=== PATIENT | female | born 1985 | race Caucasian/White ===

== ENCOUNTER → 2018-10-13 | Outpatient (REF) | payer OTHER ==
[2018-10-13 15:32] LABS: CHLAMYDIA DNA AMPLIFICATION NEGATIVE (NEGATIVE); GC DNA AMPLIFICATION NEGATIVE (NEGATIVE)
[2018-10-16 14:22] LABS: HPV HYBRID CAPTURE II Negative (Negative)
== END ==
LOC: M LAB REF 13:15
PROVIDERS: ATTEND Obstetrics & Gynecology
DX: Z11.3 Encounter for screening for infections with a predominantly sexual mode of transmission (principal); Z12.4 Encounter for screening for malignant neoplasm of cervix
CPT/HCPCS: 87491; 87591; 87624; G0123

== ENCOUNTER → 2019-05-04 | Outpatient (CLI) | payer OTHER ==
--- NOTE | 2019-05-05 02:54 | REP ---
Clinical: Trauma. Technique: AP, lateral, bilateral oblique views left wrist . Findings: The carpal bones, surrounding osseous structures, soft tissues, and joint spaces are normal. There is no evidence for acute fracture or dislocation. No subcutaneous emphysema or radiodense foreign body. Impression: Normal wrist series. No acute fracture or dislocation Electronically Signed by Daniel Hoffman MD 05/05/2019 02:46 A
== END ==
LOC: M WUC 10:12
PROVIDERS: ATTEND Physician Assistant
DX: S63.502A Unspecified sprain of left wrist, initial encounter (principal)

== ENCOUNTER → 2021-01-30 | Outpatient (REF) | payer OTHER ==
[2021-01-31 13:25] LABS: CHLAMYDIA DNA AMPLIFICATION NEGATIVE (NEGATIVE); GC DNA AMPLIFICATION NEGATIVE (NEGATIVE)
== END ==
LOC: M SFHCWAGY 10:06
PROVIDERS: ATTEND Obstetrics & Gynecology
DX: Z11.3 Encounter for screening for infections with a predominantly sexual mode of transmission (principal)

== ENCOUNTER → 2021-02-08 | Outpatient (REF) | payer OTHER | LOC: M SFHCWAGY 13:07 | PROVIDERS: ATTEND Obstetrics & Gynecology | DX: Z01.419 Encounter for gynecological examination (general) (routine) without abnormal findings (principal); Z12.4 Encounter for screening for malignant neoplasm of cervix ==

== ENCOUNTER → 2021-06-15 | Outpatient (CLI) | payer OTHER ==
--- NOTE | 2021-06-15 10:01 | REP ---
INDICATION: FOLLICULAR CYST OF LEFT OVARY. LMP, 8 years ago COMPARISON: Pelvic ultrasound, 05/02/2014. TECHNIQUE: Trans abdominal and transvaginal ultrasound evaluation of the pelvis was performed. FINDINGS: The anteverted uterus measures 8.4 x 4.3 x 4.1 cm. The endometrium measures 5 mm in thickness and contains an IUD in good position. The right ovary measures 3.1 x 1.9 x 1.8 cm. The resistive index is 0.57. The left ovary measures 3.5 x 3.3 x 2.0 cm. The resistive index is 0.57. There is a complex cyst with debris in the left ovary measuring 2.2 x 2.1 x 1.7 cm. There is no free fluid the pelvis. IMPRESSION: 1. IUD in good position in the uterine cavity. 2. Hemorrhagic cyst in the left ovary. <Electronically signed by Dudley Traylor > 06/15/21 [id number]
== END ==
LOC: M WHC 07:06
PROVIDERS: ATTEND Obstetrics & Gynecology
DX: N83.02 Follicular cyst of left ovary (principal)

== ENCOUNTER → 2021-09-28 | Outpatient (CLI) | payer OTHER ==
[~2021-09-28] MED LIST: HYOS125TA PO
== END ==
LOC: M LABSMTC 10:10
PROVIDERS: ATTEND Anesthesiology
DX: Z01.812 Encounter for preprocedural laboratory examination (principal); Z20.822 Contact with and (suspected) exposure to COVID-19

== ENCOUNTER 2021-10-03 12:02 | Day surgery (SDC) | payer OTHER ==
[~2021-10-03] VITALS: Ht 162.6 cm; Wt 70.2 kg
[~2021-10-03 12:02] MED LIST changes: +NS 1,000 ML IV ONE
[2021-10-03] MEDS ORDERED: propofoL 200 MG/20 ML VIAL As Ordered ONE (14:30)
[2021-10-03] MEDS ORDERED: LIDOCAINE 2% MDV 20ML VIAL As Ordered ONE (14:30)
[2021-10-03 15:10] VITALS: BP 131/79
== END 2021-10-03 15:13 | disposition home or self-care (01) ==
LOC: M OPP 12:02
PROVIDERS: ATTEND Internal Medicine Gastroenterology
DX: K64.0 First degree hemorrhoids (principal); R19.4 Change in bowel habit; R10.30 Lower abdominal pain, unspecified

== ENCOUNTER → 2023-09-23 | Outpatient (REF) | payer OTHER ==
[~2023-09-23] MED LIST changes: -NS 1,000 ML IV ONE
[2023-09-23 20:32] LABS: FOLATE > 24.00 NG/ML (>5.4)
[2023-09-23 20:36] LABS: VITAMIN B12 LEVEL 645 PG/ML (211-911)
== END ==
LOC: M LABWUC 17:34
PROVIDERS: ATTEND Registered Nurse
DX: F45.8 Other somatoform disorders (principal)

== ENCOUNTER 2023-10-01 08:35 | Day surgery (SDC) | payer OTHER ==
[~2023-10-01] VITALS: Ht 162.6 cm; Wt 70.3 kg
[2023-10-01] MEDS: NS 1,000 ML IV ONE (06:00)
[~2023-10-01 08:35] MED LIST changes: +MELO7.5T35 PO; +OMEP1CAP73 PO; +THERTAB52 PO; +mirena
[2023-10-01 09:55] VITALS: TEMP 98.5
[2023-10-01 10:26] VITALS: BP 110/74; O2SAT 99
== END 2023-10-01 10:28 | disposition home or self-care (01) ==
LOC: M OPP 08:35
PROVIDERS: ATTEND Internal Medicine Gastroenterology
DX: R12 Heartburn (principal); K44.9 Diaphragmatic hernia without obstruction or gangrene; K22.89 Other specified disease of esophagus; K31.89 Other diseases of stomach and duodenum; Z79.1 Long term (current) use of non-steroidal anti-inflammatories (NSAID); Z79.899 Other long term (current) drug therapy

== ENCOUNTER → 2023-12-31 | Outpatient (REF) | payer OTHER ==
[2023-12-31 19:24] LABS: FREE T4 1.09 NG/DL (0.89-1.76)
[2023-12-31 19:25] LABS: THYROID STIMULATING HORMONE 1.386 uIU/ML (0.55-4.78)
[2023-12-31 19:27] LABS: FREE T3 3.5 PG/ML (2.3-4.2)
== END ==
LOC: M LABWUC 17:51
PROVIDERS: ATTEND Otolaryngology
DX: K14.6 Glossodynia (principal)

== ENCOUNTER → 2024-10-21 | Outpatient (CLI) | payer OTHER ==
[2024-10-21 16:36] LABS: RHEUMATOID FACTOR QUANT < 3.5 IU/ML (<14)
[2024-10-21 16:37] LABS: VITAMIN B12 LEVEL 379 PG/ML (211-911)
[2024-10-25 21:02] LABS: ANA SCREEN, IFA NEGATIVE (NEGATIVE)
[2024-10-26 20:52] LABS: VITAMIN E(ALPHA TOCOPHEROL) 9.7 mg/L (5.7-19.9); VITAMIN E(GAMMA TOCOPHEROL) 1.2 mg/L (<=4.3)
[2024-10-28 17:32] LABS: VITAMIN B6,PYRIDOXAL PHOSPHATE 7.9 ng/mL (2.1-21.7)
== END ==
LOC: M WUC 08:37
PROVIDERS: ATTEND Psychiatry & Neurology Neurology
DX: R42 Dizziness and giddiness (principal)

== ENCOUNTER → 2025-07-19 | Outpatient (CLI) | payer OTHER | LOC: M PLALAB 08:55 | PROVIDERS: ATTEND Nurse Practitioner Family | DX: Z01.419 Encounter for gynecological examination (general) (routine) without abnormal findings (principal) ==

== ENCOUNTER → 2025-07-19 | Outpatient (REF) | payer OTHER ==
[2025-07-21 18:27] LABS: HPV APTIMA Not Detected (Not Detected)
== END ==
LOC: M PLALAB 08:28
PROVIDERS: ATTEND Nurse Practitioner Family
DX: Z12.4 Encounter for screening for malignant neoplasm of cervix (principal)
CPT/HCPCS: 87624; G0123

== ENCOUNTER → 2025-08-08 | Outpatient (CLI) | payer OTHER | LOC: M WHC 12:57 | PROVIDERS: ATTEND Nurse Practitioner Family | DX: Z12.31 Encounter for screening mammogram for malignant neoplasm of breast (principal) ==